=== PATIENT | female | born 1985 | race Caucasian/White ===

== ENCOUNTER 2017-07-14 07:27 | Emergency (ER) | payer OTHER ==
[2017-07-14] MEDS ORDERED: BIRTH CONTROL PILL (07:32)
[2017-07-14 08:19] LABS: URINE SOURCE CLEAN CATCH
[2017-07-14 08:22] LABS: URINE APPEARANCE CLEAR; URINE BILIRUBIN NEG (NEG); URINE BLOOD 1+ (NEG); URINE COLOR YELLOW; URINE GLUCOSE NEG (NORM); URINE KETONE NEG (NEG); URINE LEUKOCYTE ESTERASE NEG (NEG); URINE NITRATE NEG (NEG); URINE PROTEIN NEG (NEG); URINE SPECIFIC GRAVITY 1.015 (1.003-1.035); URINE UROBILINOGEN 0.2 MG/DL (NORM)
[2017-07-14 08:23] LABS: MICRO INDICATED? YES
[2017-07-14 08:47] LABS: CULTURE INDICATED? YES; URINE BACTERIA 2+ (NEG); URINE SQUAMOUS EPITHELIAL CELL MODERATE /[HPF]
== END 2017-07-14 09:50 | disposition home or self-care (01) ==
LOC: SED 07:27
PROVIDERS: Emergency Medicine
DX: I10 Essential (primary) hypertension (principal); R11.0 Nausea; R52 Pain, unspecified; Z88.1 Allergy status to other antibiotic agents
CPT/HCPCS: 81003; 87086; 99283